=== PATIENT | female | born 1995 | race Two or more races ===

== ENCOUNTER 2018-09-28 08:31 | Emergency (ER) | payer OTHER ==
[~2018-09-28] VITALS: Ht 162.6 cm; Wt 56.2 kg
[2018-09-28] MEDS ORDERED: TEGRETOL XR400 MG PO (08:36)
[2018-09-28] MEDS ORDERED: KEPPRA100 MG/1 M PO (08:37)
[2018-09-28] MEDS ORDERED: LAMICTAL200 MG PO (08:37)
[2018-09-28] MEDS ORDERED: ZOFRAN4 MG PO (11:58)
== END 2018-09-28 14:22 | disposition home or self-care (01) ==
LOC: ER 08:31
DX: R11.2 Nausea with vomiting, unspecified (principal)